=== PATIENT | female | born 1950 | race Caucasian/White ===

== ENCOUNTER 2018-09-17 08:38 | Inpatient (IN) | payer MEDICARE, OTHER ==
[~2018-09-17] VITALS: Ht 157.5 cm; Wt 56.7 kg
[2018-09-17 08:51] VITALS: BP 123/50
[2018-09-17] MEDS ORDERED: DIFLUCAN200 MG PO (08:55)
[2018-09-17] MEDS ORDERED: REMERON15 MG PO (08:55)
[2018-09-17] MEDS ORDERED: CHILDREN'S ASPI81 M1 PO (08:56)
[2018-09-17] MEDS ORDERED: ATORVASTATIN CA40 MG PO (08:56)
[2018-09-17] MEDS ORDERED: FISH OIL 1,001000 M2 PO (08:56)
[2018-09-17 09:32] LABS: HEMATOCRIT 31.5 % (37.0-47.0); HEMOGLOBIN 10.5 gm/dL (12.0-15.0); MCH 31.9 pg (26.0-34.0); MCHC 33.5 g/dL (28.0-37.0); MCV 95.3 fL (80.0-100.0); MPV 7.6 fl. (7.2-11.1); NUCLEATED RBCS 0 /100WBC; PLATELET COUNT* 233 thou/uL (150-400); RBC 3.31 mil/uL (4.20-5.00); RDW-CV 13.5 % (10.5-14.5); WBC 6.6 thou/uL (4.0-11.0)
[2018-09-17 09:40] LABS: CALCIUM 9.7 mg/dL (8.5-10.1); POTASSIUM 3.7 mmol/L (3.5-5.1)
[2018-09-17 09:45] LABS: ALBUMIN 3.2 g/dL (3.4-5.0); TOTAL BILIRUBIN 0.3 mg/dL (<0.1-1.0); TOTAL PROTEIN 6.9 g/dL (6.4-8.2)
[2018-09-17 10:16] LABS: ABSOLUTE LYMPHOCYTES 0.9 thou/uL (0.8-5.3); ABSOLUTE MONOCYTES 0.1 thou/uL (0.0-1.2); ABSOLUTE NEUTROPHILS 5.6 thou/uL (1.6-8.1); PLATELET ESTIMATE ADEQUATE
[2018-09-17 10:26] LABS: URINE BILIRUBIN NEGATIVE (Negative); URINE BLOOD NEGATIVE (Negative); URINE CLARITY CLEAR; URINE COLOR YELLOW; URINE GLUCOSE-RANDOM NEGATIVE (Negative); URINE KETONES NEGATIVE (Negative); URINE LEUKOCYTES-REFLEX NEGATIVE (Negative); URINE NITRITE-REFLEX NEGATIVE (Negative); URINE PROTEIN NEGATIVE (Negative); URINE SPECIFIC GRAVITY 1.025 (1.005-1.030); URINE UROBILINOGEN 0.2 E.U./dl (0.2-1.0)
[2018-09-17 11:13] LABS: BE -4.8 mmol/L (-2 to +3); HCO3 18.9 mmol/L (22.0-26.0); PCO2 30.1 mmHg (35.0-45.0); PO2 80.7 mmHg (75.0-100.0); pH 7.416 (7.340-7.450)
[2018-09-17 11:47] VITALS: BP 141/68
[2018-09-17 15:00] VITALS: BP 120/56
--- NOTE | 2018-09-17 16:26 | EKG ---
[place] [address] ELECTROCARDIOGRAM REPORT Name: ALEXARIELLE Room: [address] ADM IN .R.#: [id number] Admission: 09/17/18 Attend Phys: Terra Dueñas MD Discharge: Date of : 46 Report #: [id number] THIS REPORT FOR: //name// [facility] ED Test Date: 2018-09-17 Test Time: 09:16:14 Pat Name: ARIELLE JOHNSON Department: Room: [facility] Gender: F Cloth Shrinking Tester: Alondra TORRES : 1950 Requested By: Nanci Garcia Order Number: [id number] MD: Bal Marcus Measurements Intervals Guy Rate: 85 P: 26 MT: 164 QRS: 6 QRSD: 90 T: 69 QT: 379 QTc: 451 Interpretive Statements Sinus rhythm Borderline T abnormalities, lateral leads No previous ECG available for comparison Electronically Signed On 09-17-2018 16:26:25 MOLD BLOWER by Bal Marcus [email or web address] <ELECTRONICALLY SIGNED> By: Bal Marcus MD, [facility] 09/17/18 1626 5 5 Bal Marcus MD, [facility] /EPI
[2018-09-17 19:37] VITALS: BP 137/64
[2018-09-18] VITALS: BP 142/73
[2018-09-18 04:00] VITALS: BP 136/48
[2018-09-18] MEDS ORDERED: NYSTATIN100000 UNI SW&SWALLOW (08:51)
[2018-09-18 09:09] VITALS: BP 151/69
[2018-09-18 11:54] VITALS: BP 130/61
[2018-09-18 16:00] VITALS: BP 144/56
[2018-09-18 20:00] VITALS: BP 146/69
[2018-09-19] VITALS: BP 146/63
[2018-09-19 04:00] VITALS: BP 159/84
[2018-09-19 08:25] VITALS: BP 158/65
[2018-09-19 11:00] VITALS: BP 142/67
[2018-09-19] MEDS ORDERED: DIFLUCAN200 MG PO (13:04)
[2018-09-19] MEDS ORDERED: FERREX 150 PLU1 EAC1 PO (13:04)
[2018-09-19 13:46] VITALS: BP 142/67
== END 2018-09-19 14:33 | disposition home or self-care (01) | DRG 369 ==
LOC: M.ERS 08:38 → M.TBA-ER 10:53 → M.2W 10:53
PROVIDERS: Personal Emergency Response Attendant; ADMIT Internal Medicine
DX: B37.81 Candidal esophagitis (principal); E44.1 Mild protein-calorie malnutrition; E86.0 Dehydration; C43.9 Malignant melanoma of skin, unspecified; B37.9 Candidiasis, unspecified; Z79.899 Other long term (current) drug therapy; Z23 Encounter for immunization; Z68.22 Body mass index [BMI] 22.0-22.9, adult